=== PATIENT | male | born 1990 | race Caucasian/White ===

== ENCOUNTER 2024-01-29 08:15 | Emergency (ER) | payer MEDICAID ==
[~2024-01-29] VITALS: Ht 175.3 cm; Wt 68.0 kg
[2024-01-29 08:38] VITALS: BP 135/72; PULSE 77; RESP 16; TEMP 97.7; O2SAT 99
[2024-01-29] MEDS: LIDOCAINE HCL/EPINEPHRINE 1%-EPI 1:100,000 20 ML VIAL INFIL ONE (09:00)
[2024-01-29] MEDS: TETANUS, DIPHTHERIA, PERTUSSIS VAC/PF 0.5ML (>10YR OLD) IM ONE (09:00)
[2024-01-29] MEDS: ONDANSETRON 4MG ODT PO ONE (09:00)
[2024-01-29] MEDS: HYDROCODONE/ACETAMINOPHEN 10/325MG TABLET PO ONE (09:00)
[2024-01-29] MEDS ORDERED: CEPH500C2 MT (09:54)
[2024-01-29] MEDS ORDERED: DOXY100T2 MT (09:54)
[2024-01-29] MEDS ORDERED: IBUP-2029 MT (09:54)
[2024-01-29] MEDS: CEPHALEXIN 250MG CAPSULE PO ONE (10:00)
[2024-01-29] MEDS: DOXYCYCLINE HYCLATE 100MG CAPSULE PO ONE (10:00)
== END 2024-01-29 10:32 | disposition home or self-care (01) ==
LOC: ER 09:14
DX: L02.416 Cutaneous abscess of left lower limb (principal); F15.10 Other stimulant abuse, uncomplicated
CPT/HCPCS: 90715; 10060; 90471; 99284; Q0162; J3490; Z7610 ×6

== ENCOUNTER 2025-02-21 09:17 | Inpatient (IN) | payer MEDICAID ==
[2025-02-21] VITALS: BP 113/72; PULSE 93; RESP 20; TEMP 36.4; O2SAT 98
[~2025-02-21] VITALS: Ht 175.3 cm; Wt 65.3 kg
[~2025-02-21 09:17] MED LIST: CEPH500C2 MT; DOXY100T2 MT; IBUP-2029 MT
[2025-02-21 09:29] VITALS: O2SAT 100
[2025-02-21 10:06] LABS: BASOPHILS % 0.4 % (0.0-2.0); EOSINOPHILS % 2.2 % (0.0-5.0); HEMATOCRIT. 40.1 % (42.0-52.0); HEMOGLOBIN. 13.6 g/dL (14.0-18.0); LYMPHOCYTES % 8.5 % (20.0-50.0); MEAN CORPUSCULAR HGB CONC 34.1 g/dL (31.0-37.0); MEAN CORPUSCULAR VOLUME 82.2 fL (80.0-94.0); MONOCYTES % 9.4 % (2.0-8.0); NEUTROPHILS % 79.5 % (40.0-76.0); PLATELET 303 x1000/uL (130-400); RED BLOOD CELL COUNT 4.87 mill/uL (4.7-6.1); RED CELL DISTRIBUTION WIDTH 13.3 % (11.6-14.6); WHITE BLOOD COUNT 13.2 x1000/uL (4.5-11.0)
[2025-02-21 10:19] LABS: CHLORIDE 100 mEq/L (98-107); POTASSIUM 4.2 mEq/L (3.5-5.1); SODIUM 135 mEq/L (136-145)
[2025-02-21 10:20] LABS: CALCIUM 9.5 mg/dL (8.7-10.4); CARBON DIOXIDE 27 mEq/L (21-32)
[2025-02-21 10:25] LABS: CREATININE 1.1 mg/dL (0.6-1.3); GLUCOSE 111 mg/dL (70-105); UREA NITROGEN BLOOD 16 mg/dL (9-23)
[2025-02-21] MEDS: SODIUM CHLORIDE 0.9% 1,000 ML IV ONE (11:38)
[2025-02-21] MEDS: PIPERACILLIN/TAZO 3.375G/50ML 50 ML IV ONE (11:38)
[2025-02-21 12:04] LABS: LACTIC ACID 2.5 mmol/L (0.4-2.0)
[2025-02-21] MEDS ORDERED: IPRATROPIUM/ALBUTEROL 0.5-3(2.5)MG/3ML NEB HHN PRN (12:15)
[2025-02-21] MEDS ORDERED: ONDANSETRON HCL 4MG/2ML INJ IV PRN (12:15)
[2025-02-21] MEDS ORDERED: GUAIFENESIN 200MG/10ML SUGAR FREE UDC PO PRN (12:15)
[2025-02-21] MEDS ORDERED: ACETAMINOPHEN 325MG TABLET PO PRN ×2 (12:15)
[2025-02-21] MEDS ORDERED: DOCUSATE SODIUM 100MG CAPSULE PO PRN (12:15)
[2025-02-21] MEDS ORDERED: CLONIDINE 0.1MG TABLET PO PRN (12:15)
[2025-02-21] MEDS ORDERED: DEXTROSE 50% WATER 50ML SYRINGE IV PRN (12:15)
[2025-02-21] MEDS ORDERED: LORAZEPAM 0.5MG TABLET PO PRN (12:15)
[2025-02-21] MEDS: VANCOMYCIN 1G PREMIX 200 ML IV ONE (12:25)
[2025-02-21] MEDS: BLOOD SUGAR DIAGNOSTIC STRIP TEST SCH (12:49)
[2025-02-21] MEDS: INSULIN LISPRO 100 UNITS/ML SUBCUT SCH (13:05)
[2025-02-21 16:00] VITALS: BP 111/78; PULSE 93; RESP 20; TEMP 36.4; O2SAT 97
[2025-02-21 19:38] LABS: CREATINE KINASE 30 IU/L (46-171)
[2025-02-21 19:43] LABS: T4 FREE 1.04 ng/dL (0.89-1.76); THYROID STIMULATING HORMONE 1.46 uIU/mL (0.55-4.78)
[2025-02-21 20:00] VITALS: BP_SYST 110; BP_SYST 113; BP_DIAS 59; BP_DIAS 72; PULSE 92; PULSE 93; RESP 20; TEMP 36.4; TEMP 36.5; O2SAT 100; O2SAT 98
[2025-02-21] MEDS: PIPERACILLIN/TAZO 3.375G/50ML 50 ML IV SCH (20:00)
[2025-02-21] MEDS: VANCOMYCIN 1.25GM/250ML IV SCH (21:46)
[2025-02-21 23:12] LABS: CREATINE KINASE 27 IU/L (46-171)
[2025-02-22] VITALS (7 sets, daily range): BP systolic 98–129; BP diastolic 57–80; PULSE 64–98; RESP 15–20; TEMP 36.3–36.9; O2SAT 96–100
[2025-02-22 06:49] LABS: CHLORIDE 103 mEq/L (98-107); POTASSIUM 4.2 mEq/L (3.5-5.1); SODIUM 138 mEq/L (136-145)
[2025-02-22 06:50] LABS: CALCIUM 9.2 mg/dL (8.7-10.4); CARBON DIOXIDE 27 mEq/L (21-32)
[2025-02-22 06:55] LABS: CREATININE 1.1 mg/dL (0.6-1.3); GLUCOSE 79 mg/dL (70-105); UREA NITROGEN BLOOD 21 mg/dL (9-23)
[2025-02-22 06:58] LABS: BASOPHILS % 0.7 % (0.0-2.0); EOSINOPHILS % 4.8 % (0.0-5.0); HEMATOCRIT. 38.1 % (42.0-52.0); HEMOGLOBIN. 12.9 g/dL (14.0-18.0); LYMPHOCYTES % 16.7 % (20.0-50.0); MEAN CORPUSCULAR HEMOGLOBIN 28.2 pg (28.0-32.0); MEAN CORPUSCULAR HGB CONC 33.7 g/dL (31.0-37.0); MEAN CORPUSCULAR VOLUME 83.5 fL (80.0-94.0); MEAN PLATELET VOLUME 8.5 fl (7.4-10.4); MONOCYTES % 11.9 % (2.0-8.0); NEUTROPHILS % 65.9 % (40.0-76.0); PLATELET 298 x1000/uL (130-400); RED BLOOD CELL COUNT 4.57 mill/uL (4.7-6.1); RED CELL DISTRIBUTION WIDTH 13.7 % (11.6-14.6); WHITE BLOOD COUNT 7.8 x1000/uL (4.5-11.0)
[2025-02-22] MEDS: PANTOPRAZOLE SODIUM 40 MG/VIAL IV SCH (10:16)
[2025-02-22] MEDS: MUPIROCIN 2% OINT 22GM TOP SCH (21:00)
[2025-02-23] VITALS: BP 106/60; PULSE 78; RESP 18; TEMP 37.1; O2SAT 99
[2025-02-23 04:00] VITALS: BP 116/76; PULSE 96; RESP 17; TEMP 36.9; O2SAT 100
[2025-02-23 07:45] VITALS: BP 116/78; PULSE 81; RESP 18; TEMP 36.6; O2SAT 99
[2025-02-23 07:55] LABS: HEMATOCRIT. 38.7 % (42.0-52.0); HEMOGLOBIN. 13.2 g/dL (14.0-18.0); MEAN CORPUSCULAR HEMOGLOBIN 28.1 pg (28.0-32.0); MEAN CORPUSCULAR VOLUME 82.7 fL (80.0-94.0); MEAN PLATELET VOLUME 8.7 fl (7.4-10.4); PLATELET 309 x1000/uL (130-400); RED BLOOD CELL COUNT 4.68 mill/uL (4.7-6.1); RED CELL DISTRIBUTION WIDTH 13.5 % (11.6-14.6); WHITE BLOOD COUNT 7.2 x1000/uL (4.5-11.0)
[2025-02-23 08:18] LABS: DIFFERENTIAL COMMENT 1
[2025-02-23] MEDS ORDERED: MUPI22OI2 TOP (08:19)
[2025-02-23] MEDS ORDERED: SULF1TAB48 MT (08:19)
[2025-02-23 08:42] LABS: CHLORIDE 104 mEq/L (98-107); POTASSIUM 4.3 mEq/L (3.5-5.1); SODIUM 138 mEq/L (136-145)
[2025-02-23 08:43] LABS: CALCIUM 9.8 mg/dL (8.7-10.4); CARBON DIOXIDE 24 mEq/L (21-32)
[2025-02-23 08:48] LABS: CREATININE 1.2 mg/dL (0.6-1.3); GLUCOSE 79 mg/dL (70-105); UREA NITROGEN BLOOD 24 mg/dL (9-23)
[2025-02-23 12:00] VITALS: BP 115/76; PULSE 82; RESP 18; TEMP 37.1; O2SAT 100
[2025-02-23 14:29] LABS: PLATELET ESTIMATE NORMAL
== END 2025-02-23 14:00 | disposition left against medical advice (07) | DRG 720 ==
LOC: ER 09:17 → 8EST 11:13 → EDBEDREQ 11:17 → EDBEDREQTM 11:17 → 6WST 13:24
PROVIDERS: ADMIT Hospitalist; ATTEND Hospitalist
DX: A41.9 Sepsis, unspecified organism (principal); E87.20 Acidosis, unspecified; L03.115 Cellulitis of right lower limb; D64.9 Anemia, unspecified; F17.210 Nicotine dependence, cigarettes, uncomplicated; Z53.29 Procedure and treatment not carried out because of patient's decision for other reasons; R65.20 Severe sepsis without septic shock; E80.6 Other disorders of bilirubin metabolism; L30.9 Dermatitis, unspecified; W57.XXXA Bitten or stung by nonvenomous insect and other nonvenomous arthropods, initial encounter; Y93.89 Activity, other specified; Y92.89 Other specified places as the place of occurrence of the external cause; Y99.8 Other external cause status
CPT/HCPCS: 36415; 80048; 80061; 80202; 82550; 82962; 83036; 83605; 84145; 84439; 84443; 85025; 97166; 97530; 99291; A4606; J1815; J2470; J2543; J3370; J7030